=== PATIENT | male | born 2000 | race Caucasian/White ===

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

== ENCOUNTER 2020-08-27 13:39 | Outpatient (CLI) | payer MEDICAID | END 2020-08-27 23:59 | disposition home or self-care (01) | LOC: LAB.N 13:39 | PROVIDERS: ATTEND Nurse Practitioner | DX: R05 Cough (principal); Z20.822 Contact with and (suspected) exposure to COVID-19 ==

== ENCOUNTER 2020-08-27 14:14 | Outpatient (CLI) | payer MEDICAID ==
--- NOTE | 2020-08-27 14:34 | XRAY Report ---
PROCEDURE: Chest 2 View X-Ray INDICATIONS: COUGH TECHNIQUE: 2 view(s) of the chest. COMPARISON: None. FINDINGS: Surgical changes and devices: None. Lungs and pleura: No pleural effusions or pneumothorax. Lungs are clear. Mediastinum: Mediastinal contours are normal. Heart size is normal. Bones and chest wall: No suspicious bony abnormalities. Soft tissues appear unremarkable. IMPRESSION: No acute pulmonary process. Reviewed by: Estrellita Alvarez MD on 08/27/2020 2:33 PM PDT Approved by: Estrellita Alvarez MD on 08/27/2020 2:33 PM PDT Station ID: [id number]
== END 2020-08-27 23:59 | disposition home or self-care (01) ==
LOC: DI.N 14:14
PROVIDERS: ATTEND Nurse Practitioner
DX: R05 Cough (principal); Z20.822 Contact with and (suspected) exposure to COVID-19